=== PATIENT | male | born 1975 | race Two or more races ===

== ENCOUNTER 2021-06-29 14:48 | Emergency (ER) | payer SELFPAY ==
[2021-06-29] MEDS ORDERED: KETOROLAC TROMETHAMINE 30 MG/1 ML VIAL IM ONE (15:47)
[2021-06-29 15:57] VITALS: BP 128/78; PULSE 86; TEMP 98; BMI 63.9
[2021-06-29] MEDS ORDERED: KETOROLAC TROMETHAMINE 30 MG/1 ML VIAL ONE (16:27)
== END 2021-06-29 16:35 | disposition home or self-care (01) ==
LOC: JERFT 14:48
PROC: 3E0233Z Introduction of Anti-inflammatory into Muscle, Percutaneous Approach (ICD-10-PCS; principal; 2021-06-29)
DX: M79.671 Pain in right foot (principal)
CPT/HCPCS: 73610-TC-RT-FY; 73630-TC-RT-FY; 99284-25

== ENCOUNTER 2021-07-01 02:06 | Emergency (ER) | payer SELFPAY ==
[2021-07-01 02:59] VITALS: BP 138/70; PULSE 80; TEMP 97; BMI 63.9
[2021-07-01] MEDS ORDERED: DEXAMETHASONE SOD PHOSPHATE 10 MG/1 ML VIAL IVPUSH ONE (03:10)
[2021-07-01] MEDS ORDERED: KETOROLAC TROMETHAMINE 30 MG/1 ML VIAL IVPUSH ONE (03:10)
[2021-07-01] MEDS ORDERED: DEXAMETHASONE SOD PHOSPHATE 10 MG/1 ML VIAL ONE (03:20)
[2021-07-01] MEDS ORDERED: KETOROLAC TROMETHAMINE 30 MG/1 ML VIAL ONE (03:20)
[2021-07-01 03:25] LABS: BASO % 0.6 % (0-2.0); HEMATOCRIT 42.4 % (35.4-49); HEMOGLOBIN 14.1 GM/dL (11.7-16.9); LYMPH % 33.5 % (8-40); MCHC 33.1 g/dl (32.0-35.9); MEAN CELL VOLUME 87.4 fl (80-96); MEAN PLT VOLUME 8.7 fl (7.5-11.1); MONO % 10.8 % (3.8-10.2); NEUT % 54.1 % (42.8-82.8); PLATELET COUNT 182 10^3/uL (134-434); RBC 4.85 M/mm3 (4.00-5.60); RDW 15.4 % (11.9-15.9); WHITE BLOOD COUNT 5.7 K/mm3 (4.0-10.0)
[2021-07-01 03:54] LABS: ALBUMIN 3.6 g/dl (3.4-5.0); CALCIUM 9.1 mg/dL (8.5-10.1)
[2021-07-01 03:55] LABS: BLOOD UREA NITROGEN 12.3 mg/dL (7-18)
[2021-07-01 03:57] LABS: URIC ACID 8.6 mg/dL (2.6-7.2)
[2021-07-01 03:58] LABS: CREATININE 1.5 mg/dL (0.55-1.3)
[2021-07-01 03:59] LABS: BILIRUBIN,TOTAL 0.4 mg/dL (0.2-1); TOT PROT 8.3 g/dl (6.4-8.2)
[2021-07-01 04:09] LABS: ERYTHROCYTE SEDIMENTATION RATE 54 mm/hr (0-10)
[2021-07-01] MEDS ORDERED: SODIUM CHLORIDE 0.9% 500 ML INFUS.BAG IV ONE (04:22)
== END 2021-07-01 05:45 | disposition home or self-care (01) ==
LOC: JER 02:06
PROC: 3E033GC Introduction of Other Therapeutic Substance into Peripheral Vein, Percutaneous Approach (ICD-10-PCS; principal; 2021-07-01)
PROC: 3E0333Z Introduction of Anti-inflammatory into Peripheral Vein, Percutaneous Approach (ICD-10-PCS; 2021-07-01)
DX: R22.41 Localized swelling, mass and lump, right lower limb (principal)
CPT/HCPCS: 36415; 80053; 84550; 85025; 85651; 86140; 99284-25; J1100

== ENCOUNTER 2023-02-22 15:36 | Emergency (ER) | payer OTHER ==
[2023-02-22 15:52] VITALS: BP 135/85; PULSE 83; RESP 17; TEMP 98; BMI 28.2
[2023-02-22] MEDS ORDERED: ACETAMINOPHEN 500 MG TABLET (FP) PO ONE (17:11)
[2023-02-22] MEDS ORDERED: ACETAMINOPHEN 325 MG TABLET (FP) ONE (17:13)
[2023-02-22] MEDS ORDERED: IBUPROFEN 600 MG TABLET (FP) PO ONE ×2 (17:15→17:40)
[2023-02-22 17:27] LABS: BASO % 0.8 % (0-2.0); EOS % 1.3 % (0-4.5); HEMATOCRIT 46.9 % (35.4-49); HEMOGLOBIN 15.1 GM/dL (11.7-16.9); LYMPH % 44.4 % (8-40); MCHC 32.2 g/dl (32.0-35.9); MEAN CELL VOLUME 86.9 fl (80-96); MEAN PLT VOLUME 8.4 fl (7.5-11.1); MONO % 6.5 % (3.8-10.2); PLATELET COUNT 246 10^3/uL (134-434); RDW 15.9 % (11.9-15.9); WHITE BLOOD COUNT 6.6 K/mm3 (4.0-10.0)
[2023-02-22 17:43] LABS: POTASSIUM 4.3 mmol/L (3.5-5.1)
[2023-02-22 17:44] LABS: CALCIUM 9.5 mg/dL (8.5-10.1)
[2023-02-22 17:45] LABS: BLOOD UREA NITROGEN 18.7 mg/dL (7-18)
[2023-02-22 17:47] LABS: URIC ACID 7.8 mg/dL (2.6-7.2)
[2023-02-22 17:48] LABS: CREATININE 1.5 mg/dL (0.55-1.3)
== END 2023-02-22 18:54 | disposition home or self-care (01) ==
LOC: JER 15:36
DX: M25.562 Pain in left knee (principal); M10.9 Gout, unspecified
CPT/HCPCS: 36415; 73562-TC-LT-FY; 80048; 84550; 85025; 99284-25